=== PATIENT | male | born 1955 | race Caucasian/White ===

== ENCOUNTER 2020-09-27 22:00 | Inpatient (IN) | payer MEDICARE ==
[~2020-09-27] VITALS: Ht 177.8 cm; Wt 84.0 kg
[2020-09-27] MEDS ORDERED: ROSU10TA PO (22:15)
[2020-09-27] MEDS ORDERED: METF500 PO (22:15)
[2020-09-27] MEDS ORDERED: OMEP20ER PO (22:15)
[2020-09-27] MEDS ORDERED: ALBUTEROL0.63 MG/3 IH (22:16)
[2020-09-27] MEDS ORDERED: ALBU90OI INH (22:16)
[2020-09-27 22:25] LABS: BASOPHILS ABSOLUTE AUTO 0.11 K/mm3 (0.00-0.23); BASOPHILS PERCENT AUTO 1 % (0-2); EOSINOPHILS ABSOLUTE AUTO 0.31 K/mm3 (0.00-0.68); EOSINOPHILS PERCENT AUTO 3 % (0-6); Hematocrit 43.1 % (37.0-53.0); Hemoglobin 14.8 g/dL (13.5-17.5); IMMATURE GRAN ABSOLUTE AUTO 0.03 K/mm3 (0.00-0.10); IMMATURE GRAN PERCENT AUTO 0 % (0-1); LYMPHOCYTES PERCENT AUTO 26 % (21-46); MONOCYTES PERCENT AUTO 9 % (4-13); Mean Corpuscular HGB 31.1 pg (26.0-34.0); Mean Corpuscular HGB Conc 34.3 g/dL (31.5-36.5); Mean Corpuscular Volume 91 fL (80-100); Mean Platelet Volume 10.5 fL (9.1-12.4); NEUTROPHILS ABSOLUTE AUTO 7.07 K/mm3 (1.96-9.15); NEUTROPHILS PERCENT AUTO 61 % (41-73); Platelet Count 385 K/mm3 (150-400); RDW Coefficient Variation 13.2 % (11.7-14.2); RDW Standard Deviation 44.1 fL (35.1-46.3); Red Blood Cell Count 4.76 M/mm3 (4.30-5.90); White Blood Cell Count 11.52 K/mm3 (4.00-11.30)
[2020-09-27 22:56] LABS: Alanine Aminotransfer (ALT/SGP 27 U/L (12-78); Albumin, Blood 3.8 g/dL (3.4-5.0); Albumin/Globulin Ratio 1.1 (0.8-1.8); Alk Phos 76 U/L (50-136); Anion Gap 9 mmol/L (6-16); Aspartate Aminotrans (AST/SGOT 31 U/L (12-37); Bilirubin, Total 0.4 mg/dL (0.1-1.0); Blood Urea Nitrogen 12 mg/dL (8-24); Bun/Creatinine Ratio 11.5 (12.0-20.0); CO2, Blood 20 mmol/L (21-32); Calcium, Blood 9.1 mg/dL (8.5-10.1); Chloride, Blood 104 mmol/L (98-108); Creatinine, Blood 1.04 mg/dL (0.60-1.20); Globulin, Blood 3.5 g/dL (2.2-4.0); Glomerular Filtration Rate >60 (60-); Glucose, Blood 181 mg/dL (70-99); Potassium, Blood 4.4 mmol/L (3.5-5.5); Sodium, Blood 133 mmol/L (136-145); Total Protein, Blood 7.3 g/dL (6.4-8.2); Troponin I 0.046 ng/mL (0.000-0.040)
[2020-09-27 23:48] LABS: International Normalized Ratio 0.97; Prothrombin Time Results 10.5 Sec (9.7-11.5)
[2020-09-28] MEDS ORDERED: BUDE.25 INH (01:23)
--- NOTE | 2020-09-28 05:58 | NUR ---
SHIFT SUMMARY PATIENT ALERT AND ORIENTED. RESTED WELL THROUGHOUT THE NIGHT. REMIAN NPO SINCE ADMISSION. SYSTOLIC BLOOD PRESSURE DECREASED TO 90'S AND IS ASYMPTOMATIC. PATIENT ARRIVED FROM ER ON HEPARIN DRIP. HAS DENIED CP SINCE ADMISSION. ARRIVED WITH NITRO PATCH TO LEFT UPPER CHEST. PT IN SINUS RYTHM HR IN 70'S. ADMISSION PACKET COMPLETED. WILL CONTINUE TO MONITOR UNTIL END OF SHIFT.
--- NOTE | 2020-09-28 06:43 | NUR ---
PROJECT ENGINEER THIS RN HAS REVIEWED RN STUDENTS CHARTING/NOTES AND AGREES WITH ASSESMENT.
--- NOTE | 2020-09-28 09:23 | NUR ---
AM NOTE... ASSUMED CARE OF PT AT 0700. PT IS A&Ox4 AND SBA IN THE ROOM. PT WAS ADMITTED FOR STEMI, PT IS ON HEPARIN GTT RUNNING PER ORDERS AT 13UNITS/KG/HR. PT DENIES CHEST PAIN/PRESSURE AT THIS TIME PT'S BP IS ON THE SOFT SIDE BUT STABLE. NO EDEMA NOTED ON ASSESSMENT. L/S CLEAR T/O ON RA. BT PRESENT AND NORMOACTIVE. ABD IS SOFT AND NONTENDER TO PALP. SPOKE WITH DR. LOWE ON THE PHONE AND CARDIOLOGY CONSULT WILL BE CALLED IN. ECHO ORDERED. WILL CONTINUE TO ROSARIO.
--- NOTE | 2020-09-28 10:14 | NUR ---
PT UPDATE... DR. LLOYD AT THE BEDSIDE FOR CONSULT. PT IS TO BE TAKEN TO THE POWER LINEMAN TECHNICIAN IN A FEW HOURS, CONSENT SIGNED WITH THIS RN PRESENT. PT DENIES CHEST PAIN. CRITICAL [facility] PTT LABS WERE CALLED TO THIS RN, DR. LLOYD AWARE, HEPARIN GTT STOPPED FOR POWER LINEMAN TECHNICIAN PROCEDURE. PHARMACY NOTIFIED THAT THE HEPARIN GTT HAS BEEN PLACED ON SB. WILL CONTINUE TO MONITOR.
[2020-09-28 11:09] LABS: Influenza A, PCR NEGATIVE (NEGATIVE); Influenza B, PCR NEGATIVE (NEGATIVE); Resp Syncytial Virus, PCR NEGATIVE (NEGATIVE); SARS-Cov-2 (COVID-19) PCR, MMC NEGATIVE (NEGATIVE)
--- NOTE | 2020-09-28 16:12 | NUR ---
PT UPDATE... PT RETURED FROM THE [facility] WITH A STENT TO THE LAD AND A RIGHT RADIAL SITE WITH 10MLS IN THE BAND. THE TR BAND WAS PLACED AT 1355 WITH 10MLS OF AIR. PT'S VS STABLE SINCE PT RETURNED TO ROOM. PT DENIES ANY CHEST PAIN/PRESSURE N/V OR SOB. NO SWELLING BLEEDING OR HEMATOMA NOTED AT THE SITE. WILL CONTINUE TO MONITOR.
[2020-09-29 04:21] LABS: BASOPHILS ABSOLUTE AUTO 0.09 K/mm3 (0.00-0.23); BASOPHILS PERCENT AUTO 1 % (0-2); EOSINOPHILS ABSOLUTE AUTO 0.29 K/mm3 (0.00-0.68); EOSINOPHILS PERCENT AUTO 3 % (0-6); Hematocrit 44.7 % (37.0-53.0); Hemoglobin 15.2 g/dL (13.5-17.5); IMMATURE GRAN ABSOLUTE AUTO 0.05 K/mm3 (0.00-0.10); IMMATURE GRAN PERCENT AUTO 1 % (0-1); LYMPHOCYTES PERCENT AUTO 23 % (21-46); MONOCYTES ABSOLUTE AUTO 1.22 K/mm3 (0.16-1.47); MONOCYTES PERCENT AUTO 11 % (4-13); Mean Corpuscular HGB 31.1 pg (26.0-34.0); Mean Corpuscular Volume 91 fL (80-100); Mean Platelet Volume 10.6 fL (9.1-12.4); NEUTROPHILS ABSOLUTE AUTO 6.59 K/mm3 (1.96-9.15); NEUTROPHILS PERCENT AUTO 61 % (41-73); Platelet Count 376 K/mm3 (150-400); RDW Coefficient Variation 13.6 % (11.7-14.2); RDW Standard Deviation 46.1 fL (35.1-46.3); Red Blood Cell Count 4.89 M/mm3 (4.30-5.90); White Blood Cell Count 10.74 K/mm3 (4.00-11.30)
[2020-09-29 04:40] LABS: Albumin, Blood 3.7 g/dL (3.4-5.0); Anion Gap 5 mmol/L (6-16); Blood Urea Nitrogen 10 mg/dL (8-24); Bun/Creatinine Ratio 9.2 (12.0-20.0); CHOL/HDL RATIO 3.9; CO2, Blood 23 mmol/L (21-32); Calcium, Blood 8.6 mg/dL (8.5-10.1); Chloride, Blood 110 mmol/L (98-108); Cholesterol 101 mg/dL (50-200); Creatinine, Blood 1.09 mg/dL (0.60-1.20); Glomerular Filtration Rate >60 (60-); Glucose, Blood 143 mg/dL (70-99); HDL Cholesterol 26 mg/dL (>39); LDL/HDL RATIO 1.4; Low Density Lipoprotein Chol 36 mg/dL (0-110); Magnesium, Blood 2.1 mg/dL (1.6-2.4); Phosphorus, Blood 2.5 mg/dL (2.5-4.9); Potassium, Blood 3.9 mmol/L (3.5-5.5); Sodium, Blood 138 mmol/L (136-145); Triglycerides 194 mg/dL (30-160); Very Low Density Lipoprot Chol 38 mg/dL (6-32)
--- NOTE | 2020-09-29 05:04 | NUR ---
SHIFT SUMMARY NO ACUTE CHANGES THIS SHIFT. AXO. IN SR. ON RA. TR BAND FULLY RECOVERED. RW SITE PRESENTS W/OUT HEMATOMA OR BLEEDING POST TR BAND REMOVAL. PT HAS DENIED CP/PRESSURE T/O SHIFT. ARMBOARD IN PLACE TO R ARM. WILL CONTINUE TO MONITOR UNTIL SHIFT CHANGE.
[2020-09-29] MEDS ORDERED: ATOR40TA PO (11:31)
[2020-09-29] MEDS ORDERED: ACET325 PO (11:31)
[2020-09-29] MEDS ORDERED: ASPI81CH PO (11:32)
[2020-09-29] MEDS ORDERED: NITR.4SL SL (11:33)
[2020-09-29] MEDS ORDERED: Lopressor 25 mg25 MG PO (11:33)
[2020-09-29] MEDS ORDERED: ONDA4 PO (11:34)
[2020-09-29] MEDS ORDERED: TICA90TA PO (11:34)
--- NOTE | 2020-09-29 13:00 | NUR ---
Discharge Summary A/Ox4, pleasant and cooperative. Up independently in room. RA, sats >90%. Unlabored breathing, denies chest pain. Tele: SR [id number]. Reviewed [facility] Contract with patient, no questions at this time. Patient verbalized understanding and signed contract. Reviewed discharge paperwork with patient and daughter at bedside. Copy of contract and d/c papers given. IV removed, pressure dressing applied. Meds faxed to [facility]. Denied escort assistance. Personal belongings sent home.
== END 2020-09-29 12:50 | disposition home or self-care (01) | DRG 247 ==
LOC: ER 22:00 → ICUW 22:01 → PCU 09-28 16:45
PROVIDERS: Family Medicine; Internal Medicine Cardiovascular Disease; Student in an Organized Health Care Education/Training Program; ADMIT Internal Medicine
PROC: 027034Z Dilation of Coronary Artery, One Artery with Drug-eluting Intraluminal Device, Percutaneous Approach (ICD-10-PCS; principal; 2020-09-28)
PROC: 4A023N7 Measurement of Cardiac Sampling and Pressure, Left Heart, Percutaneous Approach (ICD-10-PCS; 2020-09-28)
PROC: B2111ZZ Fluoroscopy of Multiple Coronary Arteries using Low Osmolar Contrast (ICD-10-PCS; 2020-09-28)
DX: I21.4 Non-ST elevation (NSTEMI) myocardial infarction (principal); I95.9 Hypotension, unspecified; Z20.822 Contact with and (suspected) exposure to COVID-19; I25.10 Atherosclerotic heart disease of native coronary artery without angina pectoris; E78.5 Hyperlipidemia, unspecified; E11.9 Type 2 diabetes mellitus without complications; Z87.891 Personal history of nicotine dependence; Z79.84 Long term (current) use of oral hypoglycemic drugs; Z79.899 Other long term (current) drug therapy
CPT/HCPCS: 0241U; 36415; 71045; 80053; 80061; 80069; 82947; 83036; 83690; 83735; 84484; 85025; 85347; 85610; 85730; 86850; 86900; 86901; 93005; 93010; 93308; 93321; 93458; 94640; 94760; 96365; 96376; 99152; 99153; 99285-25; A9270; A9270-GY; C1725; C1769; C1874; C1887; C1894; C9600; G0378; J1644; J2250; J2370; J3010; J7030; J7050; Q9967